=== PATIENT | female | born 1955 | race Caucasian/White ===

== ENCOUNTER → 2017-05-03 | Outpatient (CLI) | payer MEDICARE ==
[~2017-05-03] MED LIST: BENADRYL IM; DIPH25CA61 PO; MORP30TA14 PO; ONDA4TAB7 SL; PHEN16.298 PO; PRED20TA PO; SUMA25TA3 PO; TRIM300C16; [UNRECOGNIZED DRUG - CODE]; [UNRECOGNIZED DRUG - OTHER] PO
== END | disposition home or self-care (01) ==
LOC: CFH 14:33
PROVIDERS: ATTEND Family Medicine
DX: Z12.31 Encounter for screening mammogram for malignant neoplasm of breast (principal)
CPT/HCPCS: G0202

== ENCOUNTER 2018-06-12 10:07 | Emergency (ER) | payer MEDICARE ==
[~2018-06-12] VITALS: Ht 157.5 cm; Wt 55.0 kg
[~2018-06-12 10:07] MED LIST changes: +PHEN-484 PO; -PHEN16.298 PO
[2018-06-12] MEDS ORDERED: SODIUM CHLORIDE FLUSH 10ML SYR IVF ONE (10:30)
[2018-06-12] MEDS ORDERED: ONDANSETRON 2MG/ML, 2ML IVPush ONE (10:30)
[2018-06-12] MEDS ORDERED: PLEASE ENTER HEIGHT AND WEIGHT MC SCH (10:30)
[2018-06-12] MEDS ORDERED: SODIUM CHLORIDE 0.9% 1,000ML IVBOLUS ONE (10:30)
[2018-06-12] MEDS ORDERED: DEXAMETHASONE 4 MG/ML, 1ML IVPush ONE (10:30)
[2018-06-12] MEDS ORDERED: ONDANSETRON 2MG/ML, 2ML ONE ×2 (10:32→12:28)
[2018-06-12] MEDS ORDERED: DEXAMETHASONE 4 MG/ML, 5ML ONE (10:33)
[2018-06-12 10:49] LABS: BASOPHILS # (AUTO) 0.04 x10^3/uL (0-0.1); BASOPHILS % (AUTO) 0 % (0-1); EOSINOPHILS # (AUTO) 0.01 x10^3/uL (0-0.4); EOSINOPHILS % (AUTO) 0 % (1-7); LYMPHOCYTES # (AUTO) 0.33 x10^3/uL (1-3.4); LYMPHOCYTES % (AUTO) 3 % (22-44); MD NO; MEAN CORPUSCULAR HEMOGLOBIN 26.3 pg (27.0-34.8); MEAN CORPUSCULAR HGB CONC 32.9 g/dL (32.4-35.8); MEAN CORPUSCULAR VOLUME 79.9 fL (80-100); MEAN PLATELET VOLUME 8.2 fL (7.4-10.4); MONOCYTES # (AUTO) 0.22 x10^3/uL (0.2-0.8); MONOCYTES % (AUTO) 2 % (2-9); NEUTROPHILS # (AUTO) 10.28 x10^3/uL (1.8-6.8); NEUTROPHILS % (AUTO) 94 % (42-75); PLATELET COUNT 246 x10^3/uL (130-400); RED BLOOD COUNT 5.02 x10^6/uL (3.82-5.3); RED CELL DISTRIBUTION WIDTH 14.2 % (9.6-15.2)
[2018-06-12 11:03] LABS: ALANINE AMINOTRANSFERASE 21 U/L (12-78); ALBUMIN 3.8 g/dL (3.4-5.0); ANION GAP 9 mmol/L (5-15); CHLORIDE 106 mmol/L (98-107); CREATININE 1.11 mg/dL (0.55-1.02)
[2018-06-12 11:05] LABS: TROPONIN I < 0.015 ng/mL (0.000-0.045)
[2018-06-12 11:09] LABS: ALKALINE PHOSPHATASE 88 U/L (45-117); BILIRUBIN,TOTAL 0.5 mg/dL (0.2-1.0); TOTAL PROTEIN 7.8 g/dL (6.4-8.2)
[2018-06-12] MEDS ORDERED: DIPHENHYDRAMINE 50 MG/ML, 1ML ONE (11:43)
[2018-06-12] MEDS ORDERED: DIPHENHYDRAMINE 50 MG/ML, 1ML IVPush ONE (12:00)
[2018-06-12] MEDS ORDERED: MAALOX/HYOSCYAMINE/LIDOCAINE 45 ML BTL ONE (12:38)
[2018-06-12 12:46] VITALS: BP 105/78
[2018-06-12] MEDS ORDERED: MAALOX/HYOSCYAMINE/LIDOCAINE 45 ML BTL PO ONE (13:00)
[2018-06-12] MEDS ORDERED: ONDANSETRON ODT 4 MG PO ONE (13:00)
== END 2018-06-12 13:12 | disposition home or self-care (01) ==
LOC: ED 11:44
DX: D84.1 Defects in the complement system (principal); Z88.0 Allergy status to penicillin; Z88.2 Allergy status to sulfonamides
CPT/HCPCS: 36415; 80053; 84484; 85025; 93005; 96374; 96375; 99285; J1100; J1200; J2405; J7030; Q0162

== ENCOUNTER 2018-10-28 13:56 | Emergency (ER) | payer MEDICARE ==
[~2018-10-28] VITALS: Ht 157.5 cm; Wt 54.3 kg
[2018-10-28 15:00] VITALS: BP 129/76
== END 2018-10-28 15:20 | disposition home or self-care (01) ==
LOC: ED 15:11
DX: I80.01 Phlebitis and thrombophlebitis of superficial vessels of right lower extremity (principal)
CPT/HCPCS: 99284

== ENCOUNTER → 2018-11-09 | Outpatient (CLI) | payer MEDICARE ==
[~2018-11-09] VITALS: Ht 160 cm; Wt 53.8 kg
[~2018-11-09] MED LIST changes: +ALBUTEROL SULFATE 2.5 MG/3 ML NPPB PRN; +DEXAMETHASONE 4 MG/ML, 1ML IV PRN; +EPHEDRINE 50 MG/ML, 1ML IM PRN; +EPHEDRINE 50 MG/ML, 1ML IVPush PRN; +LABETALOL 5MG/ML, 20ML IV PRN; +LACTATED RINGERS 1,000 ML IV SCH; +MIDAZOLAM 1 MG/ML, 2ML IV PRN; +ONDANSETRON 2MG/ML, 2ML IV PRN; +hydrALAzine 20 MG/ML, 1ML IV PRN
[2018-11-09 11:42] VITALS: BP 146/71
== END | disposition home or self-care (01) ==
LOC: OUT 10:59 → EDSTATUS 13:00
PROVIDERS: ATTEND Internal Medicine
DX: Z53.9 Procedure and treatment not carried out, unspecified reason (principal); K94.23 Gastrostomy malfunction
CPT/HCPCS: 93005

== ENCOUNTER 2018-11-11 11:48 | Day surgery (SDC) | payer MEDICARE ==
[~2018-11-11] VITALS: Ht 160 cm; Wt 53.2 kg
[~2018-11-11 11:48] MED LIST changes: -ALBUTEROL SULFATE 2.5 MG/3 ML NPPB PRN; -DEXAMETHASONE 4 MG/ML, 1ML IV PRN; -EPHEDRINE 50 MG/ML, 1ML IM PRN; -EPHEDRINE 50 MG/ML, 1ML IVPush PRN; -LABETALOL 5MG/ML, 20ML IV PRN; -LACTATED RINGERS 1,000 ML IV SCH; -MIDAZOLAM 1 MG/ML, 2ML IV PRN; -ONDANSETRON 2MG/ML, 2ML IV PRN; -hydrALAzine 20 MG/ML, 1ML IV PRN
[2018-11-11] MEDS ORDERED: DEXAMETHASONE 4 MG/ML, 1ML IV PRN (12:00)
[2018-11-11] MEDS ORDERED: DIPHENHYDRAMINE 50 MG/ML, 1ML IVPush PRN (12:00)
[2018-11-11 12:26] VITALS: BP 126/83
[2018-11-11] MEDS ORDERED: LACTATED RINGERS 1,000 ML IV SCH (12:32)
[2018-11-11] MEDS ORDERED: DEXAMETHASONE 4 MG/ML, 1ML ONE (12:37)
[2018-11-11] MEDS ORDERED: DIPHENHYDRAMINE 50 MG/ML, 1ML ONE (12:37)
[2018-11-11] MEDS ORDERED: PROPOFOL 10 MG/ML, 20ML ONE ×2 (12:37)
== END 2018-11-11 15:20 | disposition home or self-care (01) ==
LOC: OUT 11:48
PROVIDERS: ATTEND Internal Medicine
DX: K94.23 Gastrostomy malfunction (principal); Z88.1 Allergy status to other antibiotic agents; Z88.5 Allergy status to narcotic agent; Z88.8 Allergy status to other drugs, medicaments and biological substances
CPT/HCPCS: 43246; J1100; J1200; J2704

== ENCOUNTER 2019-04-02 22:27 | Emergency (ER) | payer MEDICARE ==
[~2019-04-02] VITALS: Ht 157.5 cm; Wt 54.5 kg
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
--- NOTE | 2019-04-02 23:11 | NUR ---
PHYSICIAN AT BEDSIDE. UPDATED ON POC.
--- NOTE | 2019-04-02 23:31 | NUR ---
18 UZBEK DAVIS CATHETER PLACED TO DISLODGED GI BUTTON SITE. BALLOON INFLATED WITH 10CC. PT TOLERATED WELL.
--- NOTE | 2019-04-03 00:18 | NUR ---
TASK RN: PT SITTING UP IN ESTIVEN THOMAS NOTED. PT UPDATED TO POC (AWAITNG APPARATUS FOR FEEDING TUBE) AND DEMONSTRATES UNDERSTANDING. PT DENIES NEEDS/PAIN AT THIS TIME.
--- NOTE | 2019-04-03 01:15 | NUR ---
NEW FEEDING TUBE PLACED PER PHYSICIAN. PT TOLERATED WELL. PT TO SEE GI PHYSICIAN ON WEDNESDAY.
[2019-04-03 01:40] VITALS: BP 130/77
== END 2019-04-03 01:43 | disposition home or self-care (01) ==
LOC: ED 04-03 00:15
DX: Z46.59 Encounter for fitting and adjustment of other gastrointestinal appliance and device (principal)
CPT/HCPCS: 43762; 99284

== ENCOUNTER 2019-08-07 13:39 | Outpatient (CLI) | payer MEDICARE ==
[2019-08-17] MEDS ORDERED: ONDA4TAB7 PO (15:31)
[2019-08-17] MEDS ORDERED: HYDR-826 PO (15:31)
== END 2019-08-07 23:59 | disposition home or self-care (01) ==
LOC: CFH 13:39
PROVIDERS: ATTEND Family Medicine
DX: Z12.31 Encounter for screening mammogram for malignant neoplasm of breast (principal)
CPT/HCPCS: 77067

== ENCOUNTER 2019-10-21 15:30 | Emergency (ER) | payer MEDICARE ==
[~2019-10-21] VITALS: Ht 157.5 cm; Wt 57.3 kg
[~2019-10-21 15:30] MED LIST changes: +HYDR-826 PO; +ONDA4TAB7 PO
[2019-10-21 15:46] VITALS: BP 136/93
--- NOTE | 2019-10-21 16:10 | NUR ---
PT TO ED WITH BLE PAIN/N/T, PER PT HAS THIS PAIN NORMALLY FROM HER ANGIOEDEMA AND RECIVES INJECTIONS OF BENADRYL, PUT PAIN HAS BEEN WORSENING OVER THE LAST COUPLE WEEKS. PT IN [facility], CALL LIGHT WTJade REACH. NO NEEDS AT THIS TIME
== END 2019-10-21 17:03 | disposition home or self-care (01) ==
LOC: ED 16:12
DX: M79.662 Pain in left lower leg (principal); M79.661 Pain in right lower leg
CPT/HCPCS: 99281

== ENCOUNTER 2021-04-29 21:13 | Emergency (ER) | payer MEDICARE ==
[~2021-04-29] VITALS: Ht 162.6 cm; Wt 56.3 kg
[2021-04-29] MEDS ORDERED: ADENOSINE 6 MG/2 ML ONE (21:42)
--- NOTE | 2021-04-29 21:45 | NUR ---
Patient presents to ER c/o palpitations since 229 this am. Patient states, "I just kept doing the things I was doing. I didn't want to overreact." Patient is in NAD. Respirations even and unlabored. HR 220]
--- NOTE | 2021-04-29 21:49 | NUR ---
Adenosine admin per mar. Patient's HR decreased to 116.
--- NOTE | 2021-04-29 21:50 | NUR ---
Patient up to bedside commode with no assistance. Patient denies dizziness, palpitations, CP, or SOB. HR remains stable.
[2021-04-29 21:52] LABS: BASOPHILS % (AUTO) 1 % (0-1); EOSINOPHILS % (AUTO) 2 % (1-7); LYMPHOCYTES % (AUTO) 25 % (22-44); MEAN CORPUSCULAR HEMOGLOBIN 26.8 pg (27.0-34.8); MEAN CORPUSCULAR HGB CONC 32.7 g/dL (32.4-35.8); MEAN PLATELET VOLUME 8.6 fL (7.4-10.4); MONOCYTES % (AUTO) 13 % (2-9); NEUTROPHILS % (AUTO) 60 % (42-75); PLATELET COUNT 240 x10^3/uL (130-400); RED BLOOD COUNT 5.05 x10^6/uL (3.82-5.3); RED CELL DISTRIBUTION WIDTH 14.2 % (9.6-15.2)
[2021-04-29 21:55] LABS: MD NO
[2021-04-29] MEDS ORDERED: SODIUM CHLORIDE FLUSH 10ML SYR IVF ONE (22:00)
[2021-04-29] MEDS ORDERED: SODIUM CHLORIDE 0.9% 1,000ML IVBOLUS ONE ×2 (22:00→23:00)
[2021-04-29 22:04] LABS: ANION GAP 5 mmol/L (5-15); CALCIUM 9.1 mg/dL (8.5-10.1); CHLORIDE 108 mmol/L (98-107); CREATININE 1.29 mg/dL (0.55-1.02)
[2021-04-29 22:14] LABS: TROPONIN I 0.106 ng/mL (0.000-0.045)
--- NOTE | 2021-04-29 23:27 | NUR ---
Patient resting in [place] with no complaints. Awaiting repeat trop at midnight.
[2021-04-30 01:14] VITALS: BP 107/72
--- NOTE | 2021-04-30 01:15 | NUR ---
BREAK RN: Patient given discharge instructions and they have confirmed that they understand the instructions. Patient ambulatory with steady gait. NAD, all questions answered appropriately, denies additional needs at this time. No personal belongings left in room after discharge.
== END 2021-04-30 01:28 | disposition home or self-care (01) ==
LOC: ED 21:30
DX: I47.1 Supraventricular tachycardia (principal)
CPT/HCPCS: 36415; 80048; 82040; 84443; 84484; 85025; 93005; 99284; J7030

== ENCOUNTER 2021-04-30 11:21 | Emergency (ER) | payer MEDICARE ==
[~2021-04-30] VITALS: Ht 162.6 cm; Wt 57.1 kg
--- NOTE | 2021-04-30 11:24 | NUR ---
NOT IN LOBBY X1.
--- NOTE | 2021-04-30 11:59 | NUR ---
ASSUMED CARE OF PT. SHE REPORTS SHE WAS HERE LAST NIGHT FOR HR WHICH WAS TX AND WAS TOLD TO COME BACK IF ELEVATED. AT HOME PULSE OX IT READ 180. PT IN GOWN, RESTING ON GURNEY, HOOKED TO MONITOR. NADN. VSS. CALL LIGHT W/ IN REACH
--- NOTE | 2021-04-30 12:01 | NUR ---
EKG DONE IN TRIAGE.
[2021-04-30] MEDS ORDERED: METOPROLOL SUCCINATE 25 MG TAB.ER.24H PO ONE (12:30)
--- NOTE | 2021-04-30 12:40 | NUR ---
MED REQUEST SENT TO PHARMACY
--- NOTE | 2021-04-30 12:45 | NUR ---
CONFIRMED W/ THAT PT DIDN'T REQUIRE PIV. HE STATES IT IS NOT NECESSARY, WILL BE MEDICATED W/ METOPROLOL AND OBSERVED THEN SENT HOME W/ MEDICATION. PT UPDATED ON POC.
--- NOTE | 2021-04-30 12:53 | NUR ---
PT UP TO BATHROOM AND BACK W/O INCIDENT. PT MEDICATED PER JAN. LC ADDISON. CALL LIGHT W/IN REACH.
--- NOTE | 2021-04-30 13:51 | NUR ---
TASK RN: PATIENT RESTING IN MARTHA, AZAEL, LC, CALL LIGHT WITHIN REACH, NO FURTHER NEEDS AT THIS TIME.
[2021-04-30 13:58] VITALS: BP 104/64
--- NOTE | 2021-04-30 14:06 | NUR ---
Patient given discharge instructions and prescription and they have confirmed that they understand the instructions. Patient ambulatory with steady gait from ED. NAD, all questions answered appropriately, denies additional needs at this time. No personal belongings left in room after discharge.
== END 2021-04-30 14:07 | disposition home or self-care (01) ==
LOC: ED 14:01
DX: I47.1 Supraventricular tachycardia (principal)
CPT/HCPCS: 93005; 99283

== ENCOUNTER 2021-05-08 02:06 | Emergency (ER) | payer MEDICARE ==
[~2021-05-08] VITALS: Ht 162.6 cm; Wt 56.2 kg
[2021-05-08] MEDS ORDERED: ADENOSINE 6 MG/2 ML ONE (02:13)
--- NOTE | 2021-05-08 02:29 | NUR ---
PT PRESENTED TO THE ER WITH A HEART RATE OF 204, AT BEDSIDE, THIS RN STARTED AN IV IN THE LEFT AC, MD TRIED VASO VAGAL MANEUVER TO NO AVAIL, THIS RN PUSHED 6MG OF ADENOSINE AND CHASED IT WITH 10ML OF NORMAL SALINE, PT CONVERTED TO A 100 HEART RATE, PT REPORTED OF NO CHEST PAIN OR SOB
[2021-05-08] MEDS ORDERED: ADENOSINE 6 MG/2 ML IVPush ONE (02:30)
[2021-05-08 02:44] LABS: BASOPHILS % (AUTO) 1 % (0-1); EOSINOPHILS % (AUTO) 2 % (1-7); LYMPHOCYTES % (AUTO) 26 % (22-44); MEAN CORPUSCULAR HEMOGLOBIN 26.8 pg (27.0-34.8); MEAN CORPUSCULAR HGB CONC 32.7 g/dL (32.4-35.8); MEAN PLATELET VOLUME 8.5 fL (7.4-10.4); MONOCYTES % (AUTO) 11 % (2-9); NEUTROPHILS % (AUTO) 61 % (42-75); PLATELET COUNT 206 x10^3/uL (130-400); RED BLOOD COUNT 4.58 x10^6/uL (3.82-5.3); RED CELL DISTRIBUTION WIDTH 14.4 % (9.6-15.2)
[2021-05-08 02:59] LABS: ALBUMIN 3.6 g/dL (3.4-5.0); ANION GAP 8 mmol/L (5-15); CALCIUM 8.3 mg/dL (8.5-10.1); CHLORIDE 109 mmol/L (98-107); CREATININE 1.07 mg/dL (0.55-1.02)
--- NOTE | 2021-05-08 03:24 | NUR ---
PT STATES SHE IS FEELING GREAT NOW, NO CHEST PAIN, NO SOB, NO DIZZINESS
[2021-05-08 04:43] VITALS: BP 103/59
== END 2021-05-08 04:45 | disposition home or self-care (01) ==
LOC: ED 02:19
DX: I47.1 Supraventricular tachycardia (principal); I48.91 Unspecified atrial fibrillation; R07.9 Chest pain, unspecified
CPT/HCPCS: 36415; 71045; 80048; 82040; 83735; 85025; 93005; 96374; 99285; J0153; 99291

== ENCOUNTER 2021-06-04 15:43 | Emergency (ER) | payer MEDICARE ==
[2021-06-04] MEDS ORDERED: ADENOSINE 6 MG/2 ML ONE (16:01)
--- NOTE | 2021-06-04 16:03 | NUR ---
Vasal vagal manuevar attempted and failed.
--- NOTE | 2021-06-04 16:13 | NUR ---
IV START, PADS PLACED, CONSENT READY AT BEDSIDE, 6 MG ADENOSINE ADMINISTERED WITH DR HALL VERBAL ORDER AT BEDSIDE. PT VERY ANXIOUS. SUCCESSFUL CONVERSION WITH ADENOSINE. BLANKET PLACED FOR PT COMFORT. SIDE RAILS UP, REPEAT EKG AT BEDSIDE CURRENTLY.
[2021-06-04] MEDS ORDERED: LORazepam 2 MG/ML, 1ML ONE (16:15)
[2021-06-04] MEDS ORDERED: SODIUM CHLORIDE FLUSH 10ML SYR IVF ONE (16:30)
[2021-06-04] MEDS ORDERED: ADENOSINE 6 MG/2 ML IVPush ONE (16:30)
[2021-06-04] MEDS ORDERED: SODIUM CHLORIDE 0.9% 1,000ML IVBOLUS ONE (16:30)
--- NOTE | 2021-06-04 16:37 | NUR ---
PT AMBULATES WELL TO BATHROOM INDEPENDENTLY AND BACK IN ROOM. MONITOR IN PLACE. IVF INFUSING PER EMAR. LAB AT BEDSIDE FOR BLOOD DRAW.
[2021-06-04 16:45] LABS: BASOPHILS % (AUTO) 1 % (0-1); EOSINOPHILS % (AUTO) 1 % (1-7); LYMPHOCYTES % (AUTO) 20 % (22-44); MEAN CORPUSCULAR HEMOGLOBIN 26.7 pg (27.0-34.8); MEAN CORPUSCULAR HGB CONC 32.4 g/dL (32.4-35.8); MONOCYTES % (AUTO) 10 % (2-9); NEUTROPHILS % (AUTO) 68 % (42-75); PLATELET COUNT 201 x10^3/uL (130-400); RED BLOOD COUNT 4.91 x10^6/uL (3.82-5.3); RED CELL DISTRIBUTION WIDTH 13.8 % (9.6-15.2)
[2021-06-04 16:54] LABS: ALBUMIN 3.8 g/dL (3.4-5.0); ANION GAP 5 mmol/L (5-15); CALCIUM 9.1 mg/dL (8.5-10.1); CHLORIDE 107 mmol/L (98-107); CREATININE 1.01 mg/dL (0.55-1.02)
[2021-06-04 16:58] LABS: TROPONIN I < 0.015 ng/mL (0.000-0.045)
--- NOTE | 2021-06-04 17:32 | NUR ---
pt ambulates well to bathroom. nad noted at this time. awaiting dc papers.
[2021-06-04 18:00] VITALS: BP 129/84
== END 2021-06-04 18:15 | disposition home or self-care (01) ==
LOC: ED 17:00
DX: I47.1 Supraventricular tachycardia (principal); R00.2 Palpitations; R42 Dizziness and giddiness
CPT/HCPCS: 36415; 71045; 80048; 82040; 83735; 84484; 85025; 93005; 96361; 96374; 99285; J0153; J7030